=== PATIENT | male | born 1970 | race Caucasian/White ===

== ENCOUNTER 2019-05-23 23:18 | Emergency (ER) | payer MEDICAID ==
[~2019-05-23] VITALS: Ht 167.6 cm; Wt 99.3 kg
[2019-05-23 23:31] VITALS: BP 161/90
--- NOTE | 2019-05-23 23:34 | NUR ---
TO LOBBY A/W BED AMBULATORY
--- NOTE | 2019-05-23 23:45 | NUR ---
48 Y/O MALE PRESENTS TO ED, C/O SORETHROAT. PT STATES HE HAD SORETHROAT 1 WEEK AGO. PT IS UNABLE TO RELIEVE SORETHROAT. PT DENIES ANY PAIN. PT HAS NON PRODUCTIVE COUGH AND AUDIBLE UPPER RESPIRATORY WHEEZING. NO OBVIOUS SIGNS OF RESPIRATORY DISTRESS. O2 SAT AT 99% ROOM AIR. PT DENIES ANY MEDICAL HX. PT VSS. ERMD AWARE. WILL CONTINUE TO MONITOR.
--- NOTE | 2019-05-23 23:51 | NUR ---
PT AMBULATED TO BED #4
[2019-05-24] MEDS ORDERED: ALBUTEROL SULFATE/IPRATROPIU 3 ML SOL IH ONE (00:30)
[2019-05-24] MEDS ORDERED: predniSONE 20 MG TAB PO ONE (00:30)
--- NOTE | 2019-05-24 01:26 | NUR ---
PT AWAKE, LAYING ON BED. PT STATES, "I FEEL AND SOUND BETTER." UPPER RESPIRATORY WHEEZING IS SLIGHTLY DIMINISHED. NO RESPIRATORY DISTRESS. PT VSS. ERMD AWARE. WILL CONTINUE TO MONITOR.
[2019-05-24 01:31] VITALS: BP 145/78
--- NOTE | 2019-05-24 01:31 | NUR ---
PT DISCHARGED WITH PAPERWORK. RX ALBUTEROL, PREDNISONE. EDUCATED PT REGARDING MEDICATIONS AND S/E. EDUCATED PT REGARDING DISCHARGE DIAGNOSIS. PT VERBALIZED UNDERSTANDING OF TEACHING. TOLD PT TO FOLLOW UP WITH PCP AND WHEN TO RETURN TO ED. PT VSS. ALL QUESTIONS ANSWERED.
== END 2019-05-24 01:31 | disposition home or self-care (01) ==
LOC: MED 23:18
DX: J45.909 Unspecified asthma, uncomplicated (principal)
CPT/HCPCS: 87081; 94640; 99283; J7512; J7620; 99284